=== PATIENT | female | born 1975 | race Asian ===

== ENCOUNTER 2016-10-31 04:49 | Emergency (ER) | payer OTHER ==
[~2016-10-31] VITALS: Ht 152.4 cm; Wt 79.3 kg
[2016-10-31] MEDS ORDERED: ONDANSETRON 2MG/ML, 2ML ONE (05:24)
[2016-10-31] MEDS ORDERED: MORPHINE SULFATE 4 MG/ML, 1ML ONE (05:24)
[2016-10-31] MEDS ORDERED: MECLIZINE CHEWABLE 25 MG TAB ONE (05:25)
[2016-10-31] MEDS ORDERED: ONDANSETRON 2MG/ML, 2ML IVPush ONE (05:30)
[2016-10-31] MEDS ORDERED: MECLIZINE CHEWABLE 25 MG TAB PO ONE (05:30)
[2016-10-31] MEDS ORDERED: MORPHINE SULFATE 4 MG/ML, 1ML IVPush PRN (05:30)
[2016-10-31] MEDS ORDERED: SODIUM CHLORIDE 0.9% 1,000ML IVBOLUS ONE (05:30)
[2016-10-31 05:55] LABS: BLOOD UREA NITROGEN 14 mg/dL (7-18)
[2016-10-31 06:03] LABS: IS PT STATUS REG ER OR PRE ER? YES
[2016-10-31] MEDS ORDERED: KETOROLAC 30 MG/1 ML IVPush ONE (07:30)
[2016-10-31] MEDS ORDERED: KETOROLAC 30 MG/1 ML ONE (07:31)
[2016-10-31 09:22] VITALS: BP 109/68
== END 2016-10-31 09:24 | disposition home or self-care (01) ==
LOC: ED 05:54
DX: R20.2 Paresthesia of skin (principal); R53.1 Weakness; R51 Headache; K21.9 Gastro-esophageal reflux disease without esophagitis
CPT/HCPCS: 36415; 70450; 70551; 71010; 72141; 80048; 82040; 84484; 85025; 93005; 96361; 96374; 96375; 99285; J1885; J2405; J7030